=== PATIENT | male | born 1985 | race Caucasian/White ===

== ENCOUNTER 2022-09-02 12:15 | Emergency (ER) | payer OTHER, SELFPAY ==
[2022-09-02 12:26] VITALS: BP 136/71; PULSE 64; RESP 22; TEMP 36; O2SAT 100
--- NOTE | 2022-09-02 12:30 | ED.URI ---
HPI - URI/Sore Throat General Chief Complaint: Upper Respiratory Infection Stated Complaint: Body Ache/Fever Time Seen by Provider: 09/02/22 12:30 Source: patient Mode of arrival: ambulatory Limitations: no limitations History of Present Illness HPI Narrative: Mr. Corado is a 37-year-old male patient presenting to clinic today with complaints of fever, cough, body aches, sore throat, and right-sided sciatica pain. He reports that he thinks he inflamed to sciatic 2 days ago when he was and bed. He reports his flu like symptoms have been going on for approximately 3 days. MD elicited complaint: fever, cough, sore throat and other ( body aches) Related Data Allergies Allergy/AdvReac Type Severity Reaction Status Date / Time No Known Allergies Allergy Verified 09/02/22 12:49 Review of Systems Review of Systems: Pertinent positives per HPI. Patient denies any fever, chills, rash, headache, visual changes, dizziness, cough, shortness of breath, chest pain, palpitations, nausea, vomiting, diarrhea, constipation, abdominal pain, or any urinary issues. PMFSH Comments At the time of my signature, I reviewed and agree with the nursing past medical, surgical, social, and family history. There is no relevant family history pertinent to the patient complaint. Exam Narrative: General: Well-developed, well nourished, in no apparent distress Head: Normocephalic, atraumatic Eyes: Pupils equally round and reactive to light bilaterally, EOM intact, sclera and conjunctive clear, no discharge, lids normal Ears: TMs intact and clear, ear canals clear, no drainage, grossly hearing normal. Nose: Nares patent, no discharge, no inflammation, no sinus tenderness. Mouth: Oral pharynx without lesions or masses, good dentition, MMM. Neck: Supple, trachea midline, no enlargement of anterior or posterior cervical nodes, no thyroid masses or goiter palpable. Cardio: Regular rate and rhythm, s1 and s2 normal, no murmur appreciated. Resp: Clear to auscultation bilaterally, no rhonchi, rales, wheezing or rubs Musculoskeletal: No deformity, Tender to palpation over the right lower back with pain radiating into the right leg, patellar reflexes 2+, straight leg positive on the right side at approximately 60?, grossly normal range of motion, muscle strength strong and equal, peripheral pulse strong, no edema, no cyanosis, normal gait and station Course Course Emergency Course: Portions of this record may have been created with voice recognition software. Level of Care: Express Care Visit Vital Signs Vital signs: Vital Signs Temperature 36.0 C L 09/02/22 12:26 Pulse Rate 64 09/02/22 12:26 Respiratory Rate 22 H 09/02/22 12:26 Blood Pressure 136/71 09/02/22 12:26 Pulse Oximetry 100 09/02/22 12:26 Oxygen Delivery Room Air 09/02/22 12:26 Temperature 36.0 C L 09/02/22 12:26 Pulse Rate 64 09/02/22 12:26 Respiratory Rate 22 H 09/02/22 12:26 Blood Pressure 136/71 09/02/22 12:26 Pulse Oximetry 100 09/02/22 12:26 Oxygen Delivery Room Air 09/02/22 12:26 Vital signs reviewed MDM - URI/Sore Throat MDM Narrative Medical decision making narrative: at the time of visit patient is resting comfortably on the exam table. Influenza a testing was positive. COVID testing was negative. Will send in prescription for some prednisone, Tamiflu, and a muscle relaxer to treat his symptoms for sciatica and influenza. Supportive measures were discussed with the patient he voiced understanding of discharge instructions and agrees to treatment plan. Differential Diagnosis Differential diagnosis: Likely upper respiratory infection, otitis media, sinusitis, viral infection, bronchitis, influenza, pharyngitis and other ( COVID) Lab Data Labs: Influenza A Screen Positive Reference Range: Negative Influenza B Screen Negative
== END 2022-09-02 12:55 | disposition home or self-care (01) ==
PROVIDERS: Emergency Provider Nurse Practitioner Family
DX: J10.1 Influenza due to other identified influenza virus with other respiratory manifestations (principal); M54.30 Sciatica, unspecified side; Z20.822 Contact with and (suspected) exposure to COVID-19
CPT/HCPCS: 87426; 87804; 99203; C9803; G0463

== ENCOUNTER 2022-10-12 10:59 | Emergency (ER) | payer OTHER, SELFPAY ==
[2022-10-12 11:00] VITALS: BP 143/87; PULSE 106; RESP 16; TEMP 36.2; O2SAT 98
--- NOTE | 2022-10-12 11:00 | ED.URI ---
HPI - URI/Sore Throat General Chief Complaint: Upper Respiratory Infection Stated Complaint: cold flu Time Seen by Provider: 10/12/22 11:01 Source: patient and RN notes reviewed History of Present Illness HPI Narrative: patient is a 37-year-old male who presents to urgent care with complaints of sore throat and fever for 2 days. Patient states that he has been taking ibuprofen and Mucinex. States it is very difficult to swallow due to the swelling and pain. Denies any nausea or vomiting. Denies any ill exposures. No other acute complaints. No acute distress noted. Patient aware of the plan care. Some parts of this dictation were generated by voice recognition software and may contain typographical and/or grammatical inaccuracies. Related Data Allergies Allergy/AdvReac Type Severity Reaction Status Date / Time No Known Allergies Allergy Verified 10/12/22 11:16 Review of Systems Review of Systems: CONSTITUTIONAL: Reports fever and chills EYES: Denies visual changes, redness, or discharge. ENT: Denies rhinorrhea, congestion, otalgia. Or sore throat CARDIOVASCULAR: Denies chest pain, palpitations, or edema. RESPIRATORY: Denies cough or dyspnea. GASTROINTESTINAL: Denies abdominal pain, nausea, vomiting, or diarrhea. GENITOURINARY: Denies dysuria or hematuria. SKIN: Denies rash or itching. MUSCULOSKELETAL: Denies back pain, joint pain, or myalgia. NEUROLOGIC: Denies headache, numbness, or weakness. All other systems reviewed are negative, except as documented in HPI. PMFSH Comments At the time of my signature, I reviewed and agree with the nursing past medical, surgical, social, and family history. There is no relevant family history pertinent to the patient complaint. Exam Narrative: GENERAL: This is a well-nourished, well-developed patient, in no apparent distress. HEAD: normocephalic, atraumatic. EYES: PERRL. Sclera clear/white. Vision is grossly intact. EARS: External ears normal, auditory canals clear and without drainage, TMs normal without perforation. Hearing grossly intact. NOSE: External nose normal with no obvious nasal discharge, nares without redness, no rhinorrhea. THROAT: Mucous membranes moist. Moderate erythema to posterior pharynx with mild to moderate bilateral tonsillar edema with moderate postnasal drainage NECK: Neck supple, non-tender bilateral submandibular lymphadenopathy CARDIOVASCULAR: Regular rate and rhythm without murmurs, gallops, or rubs. RESPIRATORY: Clear to auscultation. Breath sounds equal bilaterally. No wheezes, rales, or rhonchi. SKIN: warm, intact with no suspicious lesions or rash, good texture and turgor. NEURO: awake, alert, and oriented to person, place and time. There were no obvious focal neurologic abnormalities. EXTREMITIES: No clubbing, cyanosis, or edema. Course Course Level of Care: Express Care Visit Vital Signs Vital signs: Vital Signs Temperature 97.1 F L 10/12/22 11:00 Pulse Rate 106 H 10/12/22 11:00 Respiratory Rate 16 10/12/22 11:00 Blood Pressure 143/87 H 10/12/22 11:00 Pulse Oximetry 98 10/12/22 11:00 Oxygen Delivery Room Air 10/12/22 11:00 Temperature 97.1 F L 10/12/22 11:17 Pulse Rate 106 H 10/12/22 11:17 Respiratory Rate 16 10/12/22 11:17 Blood Pressure 143/87 H 10/12/22 11:17 Pulse Oximetry 98 10/12/22 11:17 Oxygen Delivery Room Air 10/12/22 11:17 Reviewed- Patient is informed that they may have pre-hypertension or hypertension based on a blood pressure reading in the department. I recommend the patient call the primary care provider listed on their discharge instructions or a physician of their choice this week to arrange follow-up for further evaluation of possible pre-hypertension or hypertension. MDM - URI/Sore Throat MDM Narrative Medical decision making narrative: reviewed lab results with patient. He is aware that strep swab is positive. Advised patient to complete the oral antibiotic regimen
[2022-10-12 11:17] VITALS: BP 143/87; PULSE 106; RESP 16; TEMP 36.2; O2SAT 98
== END 2022-10-12 11:27 | disposition home or self-care (01) ==
PROVIDERS: Emergency Provider Nurse Practitioner Family
DX: J02.0 Streptococcal pharyngitis (principal)
CPT/HCPCS: 87880; 99213; G0463

== ENCOUNTER 2023-08-27 18:43 | Emergency (ER) | payer BC, SELFPAY ==
--- NOTE | 2023-08-27 18:46 | ED.GENADULT ---
HPI - General Adult General Chief complaint: Unspecified Stated complaint: Hemorrhiods Time Seen by Provider: 08/27/23 18:55 Source: patient Mode of arrival: ambulatory Limitations: no limitations History of Present Illness HPI narrative: 38-year-old male presents concern for painful hemorrhoid. Reports has a history of hemorrhoids that he usually treats to had a with [id number] remedies. He reports this hemorrhoid started last night and has gotten larger and more painful. He reports he has tried Sitz baths and several [id number] topical remedies without relief. He denies bleeding. complaint: Hemorrhoid Related Data Allergies Allergy/AdvReac Type Severity Reaction Status Date / Time No Known Allergies Allergy Verified 08/27/23 18:57 Review of Systems Review of Systems: CONSTITUTIONAL:Reports sweats GASTROINTESTINAL: Denies bloody stools. SKIN: Denies redness, warmth GI: Reports painful hemorrhoid MUSCULOSKELETAL: Denies myalgia. All systems reviewed & are unremarkable except as noted in HPI and below PMFSH Comments At time of signature, agree with nursing past medical, surgical, social and family history. There is no relevant family history pertinent to the presenting complaint Exam Narrative: GENERAL: Appears uncomfortable, nontoxic appearing HEAD: Normocephalic ENT: Mucous membranes moist. NECK: Supple. CHEST: No respiratory distress. Speaks in full sentences. HEART: Regular rate and rhythm. GI: Large, approximately 3 cm in diameter, hemorrhoid that is possibly thrombosed another smaller 1 cm in diameter hemorrhoid proximal, no bleeding noted SKIN: Warm, dry, no visible rash. NEURO: Alert and oriented x3. PSYCH: Normal mood and affect Course Course Emergency Course: Patient is aware of diagnosis, understands and agrees to treatment plan. Anticipatory guidance given. Patient agrees to follow-up as directed and is aware of reasons to seek care at the emergency department. Portions of this record may have been created with voice recognition software Level of Care: Express Care Visit Vital Signs Vital signs: Reviewed. Medical Decision Making MDM Narrative Medical decision making narrative: Exam findings show no acute concerns or changes; patient is non-toxic appearing and is in no distress. Patient is appropriate for outpatient treatment and follow-up. Critical Care Time Critical Care Time Critical Care Time: No Discharge Plan Discharge Clinical Impression: Hemorrhoid Patient Disposition: Home, Self-Care Condition: Stable Instructions: Hemorrhoids (ED) Additional Instructions: 1) Please follow-up with Dr. Paulino for further evaluation. 2) If you have any worsening of symptoms or any other urgent concerns please go to the ER. 3) Please take medications as prescribed and continue using [id number] topical remedies as well as Sitz baths. 4) Please read and follow information included in discharge instructions. Prescriptions: New hydrocodone-acetaminophen 5-325 mg tablet 1 tablet PO Q6H PRN (Reason: pain) Qty: 10 0RF Follow-up/Referrals: UNKNOWN,DOCTOR [Non-Staff] - Doe Paulino MD [Physician] - Stand Alone Forms: Work/School Release IP Time of Disposition: 19:07
[2023-08-27 18:48] VITALS: BP 139/88; PULSE 87; RESP 20; TEMP 36.3; O2SAT 98
[2023-08-27 18:58] VITALS: BP 139/88; PULSE 87; RESP 20; TEMP 36.3; O2SAT 98
== END 2023-08-27 19:09 | disposition home or self-care (01) ==
PROVIDERS: Emergency Provider Nurse Practitioner
DX: K64.9 Unspecified hemorrhoids (principal)
CPT/HCPCS: 99213; G0463